=== PATIENT | male | born 1960 | race Two or more races ===

== ENCOUNTER 2020-02-21 13:14 | Emergency (ER) | payer OTHER ==
[~2020-02-21] VITALS: Ht 180.3 cm; Wt 67.1 kg
[2020-02-21 13:30] VITALS: BP 122/75
[2020-02-21 13:58] LABS: EOSINOPHILS % (AUTO) 0.2 % (0.0-3.0); HEMATOCRIT 47.4 % (42.0-52.0); HEMOGLOBIN 15.1 G/DL (14.2-18.0); LYMPHOCYTES % (AUTO) 25.3 % (20.0-45.0); MEAN CORPUSCULAR VOLUME 93 FL (80-99); NEUTROPHILS % (AUTO) 64.5 % (45.0-75.0); PLATELET COUNT 256 K/UL (150-450); RED BLOOD COUNT 5.12 M/UL (4.70-6.10); RED CELL DISTRIBUTION WIDTH 12.8 % (11.6-14.8); WHITE BLOOD COUNT 8.7 K/UL (4.8-10.8)
[2020-02-21 14:11] LABS: ANION GAP 8 mmol/L (5-15); BLOOD UREA NITROGEN 21 mg/dL (7-18); CARBON DIOXIDE 27 MMOL/L (21-32); CHLORIDE 105 MMOL/L (98-107); CREATININE 1.1 MG/DL (0.55-1.30); POTASSIUM 4.1 MMOL/L (3.5-5.1); SODIUM 140 MMOL/L (136-145)
[2020-02-21 14:15] LABS: ALANINE AMINOTRANSFERASE 23 U/L (12-78); ALBUMIN 3.7 G/DL (3.4-5.0); ALBUMIN/GLOBULIN RATIO 1.2 (1.0-2.7); ALKALINE PHOSPHATASE 67 U/L (46-116); ASPARTATE AMINO TRANSFERASE 19 U/L (15-37); BILIRUBIN,TOTAL 0.3 MG/DL (0.2-1.0)
[2020-02-21] MEDS ORDERED: Omnipaque-300 100ml vial INJ ONE (14:15)
--- NOTE | 2020-02-21 14:28 | Emergency Room Report ---
History of Present Illness General Chief Complaint: General Complaint Source: Patient Present Illness HPI Disclaimer: Please note that this report is being documented using [email or web address] technology. This can lead to erroneous entry secondary to incorrect interpretation by the dictating instrument. HPI: 59-year-old male history of high cholesterol and previous smoker presents from his for evaluation of this of breath and concerning findings on CT scan. Patient was recently admitted to an outside facility and found to have possible lymphadenopathy concerning for pulmonary malignancy versus metastases. Has had intermittent shortness of breath over the past few months. And was referred here by his oncologist for further work-up and evaluation. He denies any fever or cough. Allergies: Coded Allergies: No Known Allergies (Unverified , 02/21/20) COVID-19 Screening Contact w/high risk pt: No Experienced COVID-19 symptoms?: No COVID-19 Testing performed [employer]BER: No Patient History Reviewed Nursing Documentation: PMH: Agreed; PSxH: Agreed Nursing Documentation-PMH Past Medical History: No History, Except For Hx Cardiac Problems: Yes - high cholesterol Review of Systems All Other Systems: negative except mentioned in HPI Physical Exam Vital Signs Date Time Temp Pulse Resp B/P (MAP) Pulse Ox O2 Delivery O2 Flow Rate FiO2 02/21/20 13:17 98.1 74 20 122/75 (91) 94 Room Air Sp02 EP Interpretation: reviewed, normal General Appearance: well appearing, no apparent distress Head: normocephalic, atraumatic Eyes: bilateral eye PERRL, bilateral eye EOMI ENT: hearing grossly normal, moist mucus membranes Neck: full range of motion, supple Respiratory: lungs clear, normal breath sounds, no rhonchi, no respiratory distress, no retraction, no wheezing Cardiovascular #1: normal peripheral pulses, regular rate, rhythm, no murmur Gastrointestinal: non tender, soft, non-distended, no guarding Neurologic: alert, oriented x3, no focal defects Skin: normal color, warm/dry Medical Decision Making Diagnostic Impression: Primary Impression: Pulmonary nodule Additional Impression: Concern about cancer without diagnosis ER Course MDM: Differential diagnosis included but not limited to malignancy, adenopathy, pneumonia to name a few Clinical course-IV, laboratory studies were sent, CT scan of the chest abdomen and pelvis ordered. CT scan of the chest abdomen and pelvis did demonstrate evidence of pulmonary nodules, otherwise without signs of malignancy. As patient as there is some concern for malignancy in the patient and he is unable to get close follow-up will arrange for admission the hospital. Due to ins urance patient will be transferred to contracted facility for admission and CT- guided biopsy of nodule. Accepted by Dr. Doyle Labs - Laboratory Tests Test 02/21/20 13:44 White Blood Count 8.7 K/UL (4.8-10.8) Red Blood Count 5.12 M/UL (4.70-6.10) Hemoglobin 15.1 G/DL (14.2-18.0) Hematocrit 47.4 % (42.0-52.0) Mean Corpuscular Volume 93 FL (80-99) Mean Corpuscular Hemoglobin 29.5 PG (27.0-31.0) Mean Corpuscular Hemoglobin Concent 31.8 G/DL (32.0-36.0) L Red Cell Distribution Width 12.8 % (11.6-14.8) Platelet Count 256 K/UL (150-450) Mean Platelet Volume 6.1 FL (6.5-10.1) L Neutrophils (%) (Auto) 64.5 % (45.0-75.0) Lymphocytes (%) (Auto) 25.3 % (20.0-45.0) Monocytes (%) (Auto) 9.0 % (1.0-10.0) Eosinophils (%) (Auto) 0.2 % (0.0-3.0) Basophils (%) (Auto) 1.0 % (0.0-2.0) Prothrombin Time 11.0 SEC (9.30-11.50) Prothrombin Time INR 1.0 (0.9-1.1) Activated Partial Thromboplast Time 25 SEC (23-33) Sodium Level 140 MMOL/L (136-145) Potassium Level 4.1 MMOL/L (3.5-5.1) Chloride Level 105 MMOL/L (98-107) Carbon Dioxide Level 27 MMOL/L (21-32) Anion Gap 8 mmol/L (5-15) Blood Urea Nitrogen 21 mg/dL (7-18) H Creatinine 1.1 MG/DL (0.55-1.30) Estimated Glomerular Filtration Rate > 60 mL/min (>60) Glucose Level 100 MG/DL (74-106) Calcium Level 9.0 MG/DL (8.5-10.1) Total Bilirubin 0.3 MG/DL (0.2-1.0) Aspartate Amino Transferase (AST) 19 U/L (15-37) Alanine Aminotransferase (ALT) 23 U/L (12-78) Alkaline Phosphatase 67 U/L (46-116) Total Protein 6.9 G/DL (6.4-8.2) Albumin 3.7 G/DL (3.4-5.0) Globulin 3.2 g/dL Albumin/Globulin Ratio 1.2 (1.0-2.7) Microbiology Date/Time Source Procedure Growth Status 02/21/20 13:44 Nasopharynx SARS-CoV-2 RdRp Gene Assay - Final Complete EKG Diagnostic Results Rate: normal Rhythm: NSR ST Segments: no acute changes Other Impression Right axis deviation Chest X-Ray Diagnostic Results Chest X-Ray Diagnostic Results : Chest X-Ray Ordered: Yes # of Views/Limited/Complete: 1 View Indication: Shortness of Breath Interpretation: no consolidation, no effusion, no pneumothorax Impression: No acute disease CT/MRI/US Diagnostic Results CT/MRI/US Diagnostic Results : Imaging Test Ordered: CT chest abdomen pelvis with contrast Impression IMPRESSION: Multiple parenchymal opacities, as described, largest in the right lower lobe. Appearance of these is most suggestive of areas of scarring. However , underlying mass within any of these cannot be completely ruled out. Evidence of COPD with centrilobular emphysema and hyperinflation Evidence of prior cervical spine surgery. Colonic diverticulosis. No evidence of diverticulitis Mild prostatomegaly Last Vital Signs Date Time Temp Pulse Resp B/P (MAP) Pulse Ox O2 Delivery O2 Flow Rate FiO2 02/21/20 13:30 98.1 64 20 122/75 99 Room Air Disposition: SHORT-TERM HOSP Condition: Serious Referrals: NON PHYSICIAN (PCP) Femi Hall M.D. Feb 21, 2020 14:28
--- NOTE | 2020-02-21 15:57 | Diagnostic Imaging Report ---
CLINICAL INDICATION:Shortness of breath, lymphadenopathy TECHNIQUE: No oral contrast, per emergency room physician request. Multiphasic spiral acquisitions obtained through the chest, abdomen, and pelvis. Multiplanar reconstructions were generated. Total dose length product 402 mGycm. CTDIvol(s) 4, 89, 3, 3 mGy. Radiation dose was minimized using automated exposure control COMPARISON: none FINDINGS Chest: There is bilateral centrilobular emphysema. Irregular opacity with some spiculation is seen at the base of the right lower lobe, somewhat ill-defined but measures approximately 5.7 x 1 cm, most likely a complex area of scarring but underlying mass not excludable. Within the anterior right middle lobe, similar-appearing smaller area measures 1.7 is by 1 cm. An ill-defined irregular parenchymal opacity measuring 8 mm is seen in the lingula on the left. Some linear scarring is seen in the inferior lingula and areas of linear parenchymal scarring are seen at the base of the left lower lobe. A small focal massive is seen in the anterior right lower lobe, measuring 4 mm in diameter, image 52 of series 7. A 2 mm opacity is seen on the same image in the anterior lingula on the left. Lungs are otherwise clear. No effusions. No definite infiltrates. No congestion. The heart size is normal. No pericardial effusion. No mediastinal or hilar mass or adenopathy. The thyroid is unremarkable. No axillary or chest wall mass or adenopathy. The bones are unremarkable except for postsurgical changes of the lower cervical spine.. Abdomen pelvis: Lack of enteric contrast limits assessment of the GI tract. The appendix is normal. There are small colonic diverticula. No evidence of diverticulitis diverticulitis. No small bowel distention. No free or loculated intraperitoneal gas or fluid is evident. The distal esophagus, stomach, duodenum are unremarkable. The liver, gallbladder, bile ducts, pancreas, spleen, adrenals, kidneys are unremarkable. No retroperitoneal or mesenteric mass or adenopathy. No pelvic mass or adenopathy. The prostate is mildly enlarged.. IMPRESSION: Multiple parenchymal opacities, as described, largest in the right lower lobe. Appearance of these is most suggestive of areas of scarring. However, underlying mass within any of these cannot be completely ruled out. Evidence of COPD with centrilobular emphysema and hyperinflation Evidence of prior cervical spine surgery. Colonic diverticulosis. No evidence of diverticulitis Mild prostatomegaly The CT scanner at [facility] is accredited by the [employer] and the scans are performed using protocols designed to limit radiation exposure to as low as reasonably achievable to attain images of sufficient resolution adequate for diagnostic evaluation.
[2020-02-21 16:05] VITALS: BP 133/68
--- NOTE | 2020-02-21 16:30 | Diagnostic Imaging Report ---
Indication: Cough Technique: One view of the chest Comparison: none Findings: Lungs are mildly hyperinflated. The heart size is normal. Surgical hardware is seen in the cervical spine Impression: Hyperinflation. No acute process
== END 2020-02-21 16:20 | disposition short-term general hospital (02) ==
LOC: EMR 13:54 → MERGE 13:54 → EMR 16:20
DX: R91.1 Solitary pulmonary nodule (principal); K57.90 Diverticulosis of intestine, part unspecified, without perforation or abscess without bleeding; E78.00 Pure hypercholesterolemia, unspecified; Z87.891 Personal history of nicotine dependence
CPT/HCPCS: 36415; 71045; 71260; 74177; 80053; 85025; 85610; 85730; 93005; Q9965; U0002; Z7502; 99284